=== PATIENT | male | born 1945 | race Caucasian/White ===

== ENCOUNTER 2017-08-16 07:59 | Inpatient (IN) | payer MEDICARE ==
[~2017-08-16 07:59] MED LIST: GABA300C5 PO; METO-309 PO
[2017-08-16] MEDS ORDERED: BUPIVACAINE/EPINEPHRINE 0.5% PF 10 ML VIAL ONE (08:56)
[2017-08-16] MEDS ORDERED: GENTAMICIN SULFATE 80 MG/2 ML VIAL ONE ×2 (08:57→11:17)
[2017-08-16] MEDS ORDERED: TRANEXAMIC ACID INJ 1,056 MG in SODIUM CHLORIDE 0.9% INJ 100 ML IV SCH (12:00)
[2017-08-16] MEDS ORDERED: CHLORHEXIDINE GLUCONATE 4% SOLN 120 ML BTL TOPICAL SCH (12:30)
[2017-08-16] MEDS ORDERED: VANCOMYCIN 1 GM/200 ML PREMIX ON-CALL IV SCH (12:30)
[2017-08-16] MEDS ORDERED: EXPAREL PERI-ARTICULAR INJECTION (TOTAL VOL. 60 ML) P-ARTICULR SCH ×2 (12:30)
[2017-08-16] MEDS ORDERED: ceFAZolin 1,000 MG/NS 100 ML IV SCH ×2 (12:30)
[2017-08-16] MEDS ORDERED: ACETAMINOPHEN 1000 MG/100 ML 100 ML IV ONE (13:14)
[2017-08-16] MEDS ORDERED: HEPARIN SODIUM - SQ 10,000 UNITS/ML VIAL ONE (13:28)
[2017-08-16] MEDS ORDERED: VANCOMYCIN HCL 1000 MG VIAL ONE (16:10)
[2017-08-16] MEDS ORDERED: diphenhydrAMINE HCL 25 MG CAP PO PRN (16:45)
[2017-08-16] MEDS ORDERED: Post-op Orders (for Pharmacy) XX ONE (16:45)
[2017-08-16] MEDS ORDERED: TEMAZEPAM 15 MG CAP PO PRN (16:45)
[2017-08-16] MEDS ORDERED: ALUMINUM/MAGNESIUM/SIMETH 30 ML CUP PO PRN (16:45)
[2017-08-16] MEDS ORDERED: ASPIRIN EC 81 MG TABEC PO ONE (16:45)
[2017-08-16] MEDS ORDERED: ONDANSETRON ODT 4 MG TAB PO PRN (16:45)
[2017-08-16] MEDS ORDERED: MORPHINE SULFATE 8 MG/ML INJ IM PRN (16:45)
--- NOTE | 2017-08-16 16:50 | HHI.FF ---
Face to Face Verification Diagnosis: (1) Prosthetic wear following total hip arthroplasty Physical Therapy Gait training Hip: Total hip, Protocol: Right, Posterior hip precautions, Abduction pillow while in bed Nursing RN: 3 days/week x 2 weeks Dressing Changes: Do not change dressing I have seen patient Adi Portillo on 08/16/17. My clinical findings support the need for the requested home health care services because: Ltd mobility - disease progression High risk of falls I certify that my clinical findings support that this patient is homebound because: Unsteady gait/balance Lasha Morel MD August 16, 2017 16:50
[2017-08-16] MEDS ORDERED: WALKER WHEELS/F1 MIS (16:52)
[2017-08-16] MEDS ORDERED: ECASA81 PO (16:52)
[2017-08-16] MEDS ORDERED: HYDR-3583 PO (16:52)
--- NOTE | 2017-08-16 17:01 | PD.OP ---
cc: Lasha Morel MD Operative Report Date of Surgery: August 16, 2017 Preoperative Diagnosis: Malfunctioning right total hip replacement arthroplasty. 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 Painful right total hip replacement arthroplasty Postoperative Diagnosis: Same Procedure: Revision right total hip replacement arthroplasty. Anesthesia: General Surgeon: Lasha Morel Ice Scraper(s): YOHAN Knight Operation and Findings: EBL: 200 cc INDICATION: This patient is a 72-year-old male who 20 years ago came to total hip replacement arthroplasty done elsewhere. Over the last year he has become progressively painful. Investigative studies shows evidence of significant polyethylene wear and localizing granulation tissue. There is some concerns of loosening of the acetabular component. He presents for revision hip arthroplasty. NOTE: Yina López PA-C was present for the entire surgical procedure as my cashier assistant. In my medical opinion her skill and care was necessary for the proper management of this patient. COMPONENTS: COMPANY: [employer] stem and Biomet acetabular component CUP: Biomet, 52 mm, porous-coated STEM: SROM HEAD: 32, 11/13 taper, +6. PLASTIC: Biomet high wall liner series 23, 32 mm PROCEDURE: This patient was brought to the operating room and anesthetized in the supine position and positioned on the routine table in the clean air suite. The patient was then rolled to a right side up lateral position and held with a Biomet hip positioner. The hip and leg was scrubbed with alcohol followed by Hibiclens followed by chloro prep and draped sterilely. A timeout was done and antibiotics were given within a routine time window. There was a previous anterior lateral incision. A posterior approach was utilized. A portion of the previous incision was utilized. A portion of the previous incision was excised. The iliotibial band was opened in line with the incision. The trauma retractor was positioned. Scar tissue was taken down. The gluteus fernie insertion was taken down from its insertion. Posterior exposure was afforded. The posterior capsule was taken down. A subtotal capsulectomy was performed. There was almost complete wear of the polyethylene through to the metal. The polyethylene was beginning to loosen and there was a crack within the polyethylene. Once this was removed, we found that the metal liner was solid and it could not be loosened. This was found to be a Biomet 52 mm with a 23 shell liner. The attention was directed to the femoral stem. The head was removed. The stem was checked carefully and appeared to be quite solid. The neck was placed anteriorly and retractors allowed visualization. All granulation tissue was removed. The acetabular component was impacted and there was no micromotion or gross motion. We initially investigated the possibility of cementing in a liner but we had a high wall Biomet E impregnated liner available. Trial reduction showed excellent balancing with a +6 neck length. The final acetabular liner was impacted. The fit was excellent and it was very snug. We trialed with a 32 mm +6. At 90 of flexion and was stable to 65 or 70 of internal rotation. With full external rotation in extension and could not be subluxed anteriorly. The wound was irrigated [place]. Local anesthesia was utilized using Exparel and saline. Vancomycin powder was placed deep and superficial. The posterior capsule was repaired with interrupted #2 Tycron sutures. The gluteus fernie with the same. The iliotibial band was closed with interrupted #1 Vicryl suture. Vancomycin powder was positioned. Subcu tissue was packed with 2-0 Vicryl suture and skin with running #3-0 Vicryl followed by benzoin and Steri-Strips. A sterile dressing was applied.. The sponge count needle counts and instrument counts were all correct. The patient was awakened and taken to the recovery room in satisfactory condition FINDINGS: There was failure of the acetabular component at the plastic liner. We were able to salvage the cup. The final revision appear to be very satisfactory and quite stable. There was no complication that was appreciated. Lasha Morel MD August 16, 2017 17:00
[2017-08-16] MEDS ORDERED: MIDAZOLAM HCL 2 MG/2 ML VIAL ONE (17:38)
[2017-08-16] MEDS ORDERED: MORPHINE SULFATE 4 MG/ML INJ ONE (17:39)
[2017-08-16] MEDS ORDERED: *morphine SULFATE 4 MG/ML PERIprocedure ONLY ONE ×3 (17:51→18:24)
[2017-08-16] MEDS: LACTATED RINGER'S 1000 ML INJ 1,000 ML IV SCH (18:12)
--- NOTE | 2017-08-16 18:34 | RADRPT ---
EXAM DATE: 08/16/2017 6:21 PM EDT AGE/SEX: 72 years / Male INDICATIONS: Post op right hip. CLINICAL DATA: This is the patient's initial encounter. Patient reports that signs and symptoms have been present for 1 day and indicates a pain score of Nonresponsive. MEDICAL/SURGICAL HISTORY: Non-responsive. Non-responsive. COMPARISON: . FINDINGS: AP and frog-leg lateral views of the right hip were obtained and demonstrate the patient status post right hip arthroplasty. The femoral and acetabular components are intact and are in normal alignment. There is overlying soft tissue swelling and gas. CONCLUSION: Expected postoperative changes status post arthroplasty. Electronically signed by: Santo Mcmanus MD 08/16/2017 6:33 PM EDT
[2017-08-16] MEDS ORDERED: DO NOT ADM ANY ANTICOAGULANT DRUGS PRN (19:00)
[2017-08-16] MEDS ORDERED: NEOSTIGMINE 5 MG/5 ML SYRINGE IV PUSH ONE (19:59)
[2017-08-16] MEDS ORDERED: ROCURONIUM INJ 50 MG/5 ML SYRINGE IV PUSH ONE (19:59)
[2017-08-16] MEDS ORDERED: ePHEDrine/NS 25 MG/5 ML SYRINGE IV ONE (19:59)
[2017-08-16] MEDS ORDERED: GLYCOPYRROLATE 1 MG/5 ML SYRINGE IV PUSH ONE (19:59)
[2017-08-16] MEDS ORDERED: LIDOCAINE HCL 1% PF 5 ML SYRINGE OTHER ONE (19:59)
[2017-08-16] MEDS ORDERED: PHENYLEPH/NS 1000 MCG/10 ML SYR IV ONE (19:59)
[2017-08-16] MEDS ORDERED: ceFAZolin INJ 1,000 MG VIAL IV ONE (19:59)
[2017-08-16] MEDS ORDERED: PROPOFOL 200 MG/20 ML AMP IV ONE (19:59)
[2017-08-16] MEDS ORDERED: ONDANSETRON HCL 4 MG/2 ML VIAL IV PUSH ONE (19:59)
[2017-08-16] MEDS ORDERED: DEXAMETHASONE SOD PHOS 4 MG/ML VIAL IV ONE (19:59)
[2017-08-16 20:00] VITALS: BP 142/75; PULSE 73; RESP 20; TEMP 98.3; O2SAT 96
[2017-08-16] MEDS: GABAPENTIN 300 MG CAP PO SCH (20:58)
[2017-08-16] MEDS: ASPIRIN EC 81 MG TABEC PO SCH (20:59)
[2017-08-16] MEDS: MAGNESIUM HYDROXIDE SUSP 30 ML CUP PO SCH (20:59)
[2017-08-16] MEDS: METOPROLOL TARTRATE 50 MG TAB PO SCH (20:59)
[2017-08-16] MEDS: SENNOSIDES 8.6 MG TAB PO SCH (20:59)
[2017-08-16] MEDS: ACETAMINOPHEN/HYDROcodone 325 MG/10 MG TAB PO PRN (20:59)
[2017-08-17] VITALS: BP 117/84; PULSE 88; RESP 20; TEMP 98.2; O2SAT 96
[2017-08-17] MEDS: ACETAMINOPHEN/HYDROcodone 325 MG/10 MG TAB PO PRN ×4 (01:09→20:52)
[2017-08-17 04:00] VITALS: BP 112/55; PULSE 67; RESP 20; TEMP 98.1; O2SAT 96
[2017-08-17 05:23] LABS: HEMATOCRIT 41.8 % (39.0-51.0); HEMOGLOBIN 13.9 GM/DL (13.0-17.0)
[2017-08-17] MEDS: LACTATED RINGER'S 1000 ML INJ 1,000 ML IV SCH ×2 (05:33→16:58)
--- NOTE | 2017-08-17 07:51 | HHI.DCPOC ---
Discharge Care Plan Diagnosis: (1) Other mechanical complication of internal right hip prosthesis, initial encounter Your Health Problems Are: Difficulty with ADL Incision/Drains Swelling Goals to Promote Your Health * To prevent worsening of your condition and complications * To maintain your health at the optimal level Directions to Meet Your Goals Take your medications as prescribed Follow your dietary instruction Follow activity as directed Keep your appointments as scheduled Take your immunizations and boosters as scheduled If your symptoms worsen call your PCP, if no PCP go to Urgent Care Center or Emergency Room Smoking is Dangerous to Your Health. Avoid second hand smoke Call the 24-hour hour crisis hotline for domestic abuse at Yina López August 17, 2017 07:51
[2017-08-17] MEDS ORDERED: COMMODE 3-IN-11 MIS (07:53)
--- NOTE | 2017-08-17 07:56 | HHI.DS ---
Discharge Summary Admission Date August 16, 2017 at 07:59 Discharge Date: August 17, 2017 Admitting Diagnosis See below Diagnosis: (1) Prosthetic wear following total hip arthroplasty Diagnosis: Principal ICD Codes: T84.069A - Wear of articular bearing surface of unspecified internal prosthetic joint, initial encounter; Z96.649 - Presence of unspecified artificial hip joint (2) Other mechanical complication of internal right hip prosthesis, initial encounter Diagnosis: Principal ICD Codes: T84.090A - Other mechanical complication of internal right hip prosthesis, initial encounter Procedures Revision right total hip replacement arthroplasty Brief History This is a 72 year old male patient with a history of a previous right hip replacement performed approximately 20+ years ago for osteoarthritis. The patient is done well until last 6-12 months. He is having progressive pain and weakness of the right hip. Investigative studies are consistent with significant polyethylene wear and evidence of ryan-acetabular synovitis. The patient presents for revision hip arthroplasty CBC/BMP: 08/17/17 0457 Significant Findings Laboratory Tests Test 08/17/17 04:57 Imaging Postoperative x-rays and review of the radiologist's interpretation shows evidence of a well-positioned uncemented hip replacement PE at Discharge Right hip appears unremarkable. Alignment is satisfactory. Leg lengths are equal. Neurologic examination is normal. No drainage Hospital Course The patient was admitted electively for surgery. He was taken to the operating room on the date of surgery. He had the above procedure performed under a general anesthetic. Postoperatively he was transferred to the floor. He had an unremarkable postoperative course. He was felt to be a candidate for discharge to home Pt Condition on Discharge: Good Discharge Disposition: Disch w/ Home Health Serv Discharge Instructions Diet Instructions: As Tolerated, No Restrictions Activities You Can Perform: Weight Bearing as [place] Activities to Avoid: Strenuous Activity, Bathing Lasha Morel MD August 17, 2017 07:56
--- NOTE | 2017-08-17 07:58 | PD.ORT.PN ---
Subjective Subjective Remarks No complaints. Lying comfortably in bed. Objective Vitals Vital Signs Date Time Temp Pulse Resp B/P (MAP) Pulse Ox O2 Delivery O2 Flow Rate FiO2 08/17/17 04:00 98.1 67 20 112/55 (74) 96 08/17/17 00:00 98.2 88 20 117/84 (95) 96 08/16/17 20:00 98.3 73 20 142/75 (97) 96 08/16/17 19:30 97.4 76 14 135/72 (93) 96 Nasal Cannula 2 08/16/17 19:00 73 14 138/71 (93) 95 Nasal Cannula 2 08/16/17 18:30 71 17 155/77 (103) 98 Nasal Cannula 2 08/16/17 18:15 66 14 152/74 (100) 98 Nasal Cannula 2 08/16/17 18:00 68 14 148/68 (94) 97 Nasal Cannula 2 08/16/17 17:45 66 19 151/72 (98) 97 Nasal Cannula 3 08/16/17 17:33 97.6 63 18 151/87 (108) 93 Nasal Cannula 4 08/16/17 10:25 98.5 58 20 138/84 (102) 96 I/O 08/16/17 08/16/17 08/16/17 08/17/17 08/17/17 08/17/17 07:00 15:00 23:00 07:00 15:00 23:00 Intake Total 2701 ml 1452 ml Output Total 550 ml 350 ml Balance 2151 ml 1102 ml Intake Oral 75 ml 480 ml IV Total 126 ml 972 ml Other 2500 ml Output Urine Total 350 ml 350 ml Estimated Blood Loss 200 ml Result Diagram: 08/17/17 0457 Imaging Last 24 hours Impressions Hip X-Ray 08/16/17 0695 Signed Impressions: CONCLUSION: Expected postoperative changes status post arthroplasty. Procedures Revision right total hip replacement arthroplasty Objective Remarks Right hip appears unremarkable. Alignment is satisfactory. Leg lengths are equal. Neurologic examination is normal. No drainage. No calf tenderness Assessment & Plan Problem List: (1) Prosthetic wear following total hip arthroplasty ICD Codes: T84.069A - Wear of articular bearing surface of unspecified internal prosthetic joint, initial encounter; Z96.649 - Presence of unspecified artificial hip joint Qualifiers: Qualified Codes: T84.069D - Wear of articular bearing surface of unspecified internal prosthetic joint, subsequent encounter; Z96.649 - Presence of unspecified artificial hip joint (2) Other mechanical complication of internal right hip prosthesis, initial encounter ICD Codes: T84.090A - Other mechanical complication of internal right hip prosthesis, initial encounter Assessment and Plan Malfunctioning right total hip replacement arthroplasty. SURGERY: Revision right total hip replacement: POD #1 PLAN: Weightbearing as tolerated. Aspirin for anticoagulation for 30 days. [place] for pain. Prescription written. Home with home health care and home PT, today. No dressing change. Follow-up in 2 weeks. Orthopedically stable Lasha Morel MD August 17, 2017 07:58
[2017-08-17 08:00] VITALS: BP 129/76; PULSE 68; RESP 18; TEMP 98.3; O2SAT 96
[2017-08-17] MEDS: ASPIRIN EC 81 MG TABEC PO SCH ×2 (08:58→19:59)
[2017-08-17] MEDS: GABAPENTIN 300 MG CAP PO SCH ×2 (08:58→19:59)
[2017-08-17] MEDS: METOPROLOL TARTRATE 50 MG TAB PO SCH ×2 (08:58→19:59)
[2017-08-17] MEDS: MAGNESIUM HYDROXIDE SUSP 30 ML CUP PO SCH ×2 (09:00→19:59)
[2017-08-17 12:00] VITALS: BP 102/61; PULSE 61; RESP 18; TEMP 97.7; O2SAT 94
[2017-08-17 16:00] VITALS: BP_SYST 118; BP_SYST 127; BP_DIAS 55; BP_DIAS 67; PULSE 66; PULSE 69; RESP 16; TEMP 97.6; TEMP 98.6; O2SAT 94
[2017-08-17] MEDS: SENNOSIDES 8.6 MG TAB PO SCH (19:59)
[2017-08-17 20:00] VITALS: BP 115/65; PULSE 65; RESP 17; TEMP 98.2; O2SAT 96
[2017-08-18 00:01] VITALS: BP 122/70; PULSE 61; RESP 17; TEMP 98.4; O2SAT 96
[2017-08-18] MEDS: ACETAMINOPHEN/HYDROcodone 325 MG/10 MG TAB PO PRN ×3 (03:36→18:09)
[2017-08-18 04:00] VITALS: BP 132/64; PULSE 58; RESP 18; TEMP 97.6; O2SAT 93
[2017-08-18] MEDS: LACTATED RINGER'S 1000 ML INJ 1,000 ML IV SCH ×2 (06:15→18:45)
--- NOTE | 2017-08-18 07:47 | PD.ORT.PN ---
Subjective Subjective Remarks pt doing better, slept very well last night, ready to be discharged home Objective Vitals Vital Signs Date Time Temp Pulse Resp B/P (MAP) Pulse Ox O2 Delivery O2 Flow Rate FiO2 08/18/17 04:00 97.6 58 18 132/64 (86) 93 08/18/17 00:01 98.4 61 17 122/70 (87) 96 08/17/17 20:00 98.2 65 17 115/65 (82) 96 08/17/17 16:00 97.6 66 16 127/67 (87) 94 08/17/17 12:00 97.7 61 18 102/61 (75) 94 08/17/17 08:00 98.3 68 18 129/76 (93) 96 I/O 08/17/17 08/17/17 08/17/17 08/18/17 08/18/17 08/18/17 07:00 15:00 23:00 07:00 15:00 23:00 Intake Total 1452 ml 133 ml 700 ml 360 ml Output Total 350 ml Balance 1102 ml 133 ml 700 ml 360 ml Intake Oral 480 ml 700 ml 360 ml IV Total 972 ml 133 ml Output Urine Total 350 ml # Voids 3 3 # Bowel Movements 0 Result Diagram: 08/17/17 7328 Imaging Last 24 hours Impressions Hip X-Ray 08/16/17 3615 Signed Impressions: CONCLUSION: Expected postoperative changes status post arthroplasty. Procedures Revision right total hip replacement arthroplasty Objective Remarks Right hip appears unremarkable. Alignment is satisfactory. Leg lengths are equal. Neurologic examination is normal. No drainage. No calf tenderness Assessment & Plan Problem List: (1) Prosthetic wear following total hip arthroplasty ICD Codes: T84.069A - Wear of articular bearing surface of unspecified internal prosthetic joint, initial encounter; Z96.649 - Presence of unspecified artificial hip joint Qualifiers: Qualified Codes: T84.069D - Wear of articular bearing surface of unspecified internal prosthetic joint, subsequent encounter; Z96.649 - Presence of unspecified artificial hip joint (2) Other mechanical complication of internal right hip prosthesis, initial encounter ICD Codes: T84.090A - Other mechanical complication of internal right hip prosthesis, initial encounter Assessment and Plan Malfunctioning right total hip replacement arthroplasty. SURGERY: Revision right total hip replacement: POD #2 PLAN: Weightbearing as tolerated. Aspirin for anticoagulation for 30 days. [place] for pain. Prescription written. Discharge home with [facility] today No dressing change. Follow-up in 2 weeks. Orthopedically stable Freddie Morel MD August 18, 2017 07:47
[2017-08-18 08:00] VITALS: BP 113/93; PULSE 53; RESP 18; TEMP 98; O2SAT 93
[2017-08-18] MEDS: METOPROLOL TARTRATE 50 MG TAB PO SCH (09:52)
[2017-08-18] MEDS: GABAPENTIN 300 MG CAP PO SCH (09:52)
[2017-08-18] MEDS: ASPIRIN EC 81 MG TABEC PO SCH (09:53)
[2017-08-18] MEDS: MAGNESIUM HYDROXIDE SUSP 30 ML CUP PO SCH (09:53)
[2017-08-18 11:42] VITALS: BP 104/54; PULSE 54; RESP 18; TEMP 97.3; O2SAT 95
== END 2017-08-18 20:00 | disposition home health service (06) | DRG 468 ==
LOC: HSDI 07:59 → N06B 19:53
PROVIDERS: ADMIT Orthopaedic Surgery Orthopaedic Surgery of the Spine; ATTEND Orthopaedic Surgery Orthopaedic Surgery of the Spine
PROC: 0SUA09Z Supplement Right Hip Joint, Acetabular Surface with Liner, Open Approach (ICD-10-PCS; 2017-08-16)
PROC: 0SP909Z Removal of Liner from Right Hip Joint, Open Approach (ICD-10-PCS; principal; 2017-08-16 13:59)
DX: T84.090A Other mechanical complication of internal right hip prosthesis, initial encounter (principal); E11.40 Type 2 diabetes mellitus with diabetic neuropathy, unspecified; I45.10 Unspecified right bundle-branch block; I10 Essential (primary) hypertension; M65.9 Synovitis and tenosynovitis, unspecified; E78.5 Hyperlipidemia, unspecified; E66.9 Obesity, unspecified; Z68.35 Body mass index [BMI] 35.0-35.9, adult
CPT/HCPCS: 73502; 85014; 85018; 86850; 86900; 86901; 86920; 94150; C1776; J0131; J0690; J1100; J1580; J1644; J2250; J2270; J2370; J2405; J2710; J3010; J3370; J7120